=== PATIENT | male | born 1990 | race Two or more races ===

== ENCOUNTER 2020-08-02 04:44 | Emergency (ER) | payer SELFPAY ==
[~2020-08-02] VITALS: Ht 172.7 cm; Wt 68.0 kg
[2020-08-02 05:18] VITALS: BP 139/93
== END 2020-08-02 08:48 | disposition left against medical advice (07) ==
LOC: ER 04:57
DX: Z53.21 Procedure and treatment not carried out due to patient leaving prior to being seen by health care provider (principal); I49.9 Cardiac arrhythmia, unspecified
CPT/HCPCS: 93005; Z7610